=== PATIENT | female | born 1980 | race African-American/Black ===

== ENCOUNTER 2017-02-09 17:06 | Emergency (ER) | payer OTHER ==
[~2017-02-09] VITALS: Ht 172.7 cm; Wt 118.8 kg
[2017-02-09] MEDS ORDERED: REME15TA PO (17:19)
[2017-02-09] MEDS ORDERED: LEXA1TAB2 PO (17:19)
[2017-02-09] MEDS ORDERED: ZYRT10TA2 PO (17:19)
[2017-02-09] MEDS ORDERED: NS 1,000 ML IV ONE (18:00)
[2017-02-09 18:29] LABS: BASO % 0.6 % (0.0-1.0); EOS # 0.2 K/mm3 (0.0-0.50); EOS % 2.7 % (0.0-3.0); LARGE UNSTAINED CELL # 0.1 K/mm3 (0.0-0.4); LARGE UNSTAINED CELL % 1.2 % (0.0-4.0); LYMPH # 2.6 K/mm3 (1.5-4.5); LYMPH % 35.2 % (24.0-44.0); MEAN CORPUSCULAR HEMOGLOBIN 27.4 pg (27.0-33.0); MEAN CORPUSCULAR HGB CONC 32.4 g/dl (32.0-36.5); MEAN CORPUSCULAR VOLUME 84.6 fl (80.0-96.0); MONO # 0.3 K/mm3 (0.0-0.8); MONO % 3.6 % (0.0-5.0); NEUTROPHILS % 56.6 % (36.0-66.0); PLATELET COUNT, AUTOMATED 335 k/mm3 (150-450); RED CELL DISTRIBUTION WIDTH 13.8 % (11.5-14.5); WHITE BLOOD COUNT 7.2 K/mm3 (4.0-10.0)
[2017-02-09 18:39] LABS: INR 1.01
[2017-02-09 18:54] LABS: ANION GAP 7 MEQ/L (8-16); BLOOD UREA NITROGEN 11 MG/DL (7-18); CALCIUM LEVEL 8.5 MG/DL (8.5-10.1); CARBON DIOXIDE LEVEL 26 MEQ/L (21-32); CHLORIDE LEVEL 105 MEQ/L (98-107); CREATININE FOR GFR 0.91 MG/DL (0.55-1.02); GLOMERULAR FILTRATION RATE > 60.0 (>60); GLUCOSE, FASTING 125 MG/DL (70-105); POTASSIUM SERUM 3.9 MEQ/L (3.5-5.1); SODIUM LEVEL 138 MEQ/L (136-145)
[2017-02-09] MEDS ORDERED: ISOVUE-370 76% 100ML VIAL (Q9967) As Ordered ONE (19:17)
--- NOTE | 2017-02-09 20:10 | REPUSA ---
CT angiogram of the chest Clinical statement: Leg pain and shortness of breath. Technique: Multiple axial CT images were obtained from the thoracic inlet through the upper abdomen a fter a bolus administration of nonionic intravenous contrast. Coronal and sagittal reconstructions we re also obtained. No comparison is available. Findings: The pulmonary arteries are well-opacified with contrast, with no intraluminal filling defec ts to suggest embolism. The thoracic aorta is unremarkable. Thyroid gland is within normal limits. Th ere is no thoracic lymphadenopathy. There are no pericardial or pleural effusions. The lungs are yaneth r. Limited imaging of the upper abdomen is unremarkable. There are no suspicious osseous lesions. Impression: Unremarkable CT examination of the chest. No evidence of pulmonary embolism.
--- NOTE | 2017-02-09 20:10 | REPUSA ---
Clinical history: Pain, swelling. Findings: The common femoral, superficial femoral, popliteal, and other deep venous structures compre ss normally and demonstrate normal color Doppler flow. Normal venous waveforms with augmentation are seen. Impression: No evidence of deep vein thrombosis in the femoral popliteal venous system.
[2017-02-09 20:47] VITALS: BP 130/67
== END 2017-02-09 20:53 | disposition home or self-care (01) ==
LOC: M ED 17:06
DX: O26.899 Other specified pregnancy related conditions, unspecified trimester (principal); O99.350 Diseases of the nervous system complicating pregnancy, unspecified trimester; G83.4 Cauda equina syndrome; O9A.219 Injury, poisoning and certain other consequences of external causes complicating pregnancy, unspecified trimester; S86.901A Unspecified injury of unspecified muscle(s) and tendon(s) at lower leg level, right leg, initial encounter; X58.XXXA Exposure to other specified factors, initial encounter; Y92.9 Unspecified place or not applicable; Y99.9 Unspecified external cause status; Y93.9 Activity, unspecified; Z88.5 Allergy status to narcotic agent
CPT/HCPCS: 36415; 71275; 80048; 85025; 85379; 85610; 85730; 93970; 99283; Q9967

== ENCOUNTER → 2017-08-17 | Outpatient (CLI) | payer OTHER | LOC: M WUC 11:13 | DX: J20.9 Acute bronchitis, unspecified (principal) ==

== ENCOUNTER → 2017-08-22 | Outpatient (CLI) | payer OTHER ==
[~2017-08-22] MED LIST: PROHANCE 279.3MG/ML 15ML VIAL (A9576) As Ordered; PROHANCE 279.3MG/ML 5ML VIAL (A9576) As Ordered
== END ==
LOC: M RAD 17:15
DX: D25.9 Leiomyoma of uterus, unspecified (principal)
CPT/HCPCS: A9576

== ENCOUNTER → 2018-01-14 | Outpatient (CLI) | payer OTHER ==
[~2018-01-14] MED LIST changes: +METHACHOLINE KIT (J7674) INH; -PROHANCE 279.3MG/ML 15ML VIAL (A9576) As Ordered; -PROHANCE 279.3MG/ML 5ML VIAL (A9576) As Ordered
== END ==
LOC: M CARPUL 12:35
DX: R06.02 Shortness of breath (principal)
CPT/HCPCS: J7674

== ENCOUNTER → 2018-01-26 | Outpatient (CLI) | payer OTHER | LOC: M SLEEP 19:49 | DX: R06.83 Snoring (principal) | CPT/HCPCS: 95810 ==